=== PATIENT | female | born 2000 | race African-American/Black ===

== ENCOUNTER 2021-10-17 19:15 | Inpatient (IN) | payer BC, OTHER ==
[2021-10-21] MEDS ORDERED: Carboprost 250 MCG/ML AMP IM PRN (06:18)
[2021-10-21] MEDS ORDERED: Promethazine HCl 25 MG/ML VIAL IM PRN ×3 (06:18→21:16)
[2021-10-21] MEDS ORDERED: Ondansetron PF 4 MG/2 ML Vial IVP PRN ×3 (06:18→21:16)
[2021-10-21] MEDS ORDERED: Lidocaine 1% (PF) 30 ML VIAL SC PRN (06:18)
[2021-10-21] MEDS ORDERED: hydrALAZINE 20 MG/ML VIAL SLOW IVP PRN ×2 (06:18→23:19)
[2021-10-21] MEDS ORDERED: HYDROcodone/Acetaminophen 5/325 mg Tablet PO PRN ×2 (06:18)
[2021-10-21] MEDS ORDERED: Ibuprofen 800 MG TAB PO PRN (06:18)
[2021-10-21] MEDS ORDERED: Diphenoxylate HCl/Atropine Tablet PO PRN ×2 (06:18)
[2021-10-21] MEDS ORDERED: NS w/ Oxytocin 30 units 500 ML IV SCH ×2 (06:18)
[2021-10-21] MEDS ORDERED: Methylergonovine 0.2 MG/ML VIAL IM PRN (06:18)
[2021-10-21] MEDS ORDERED: Acetaminophen 500 MG TAB PO PRN (06:18)
[2021-10-21] MEDS ORDERED: Misoprostol 200 MCG TAB PR PRN (06:18)
[2021-10-21] MEDS ORDERED: Butorphanol Tartrate 1 MG/ML VIAL SLOW IVP PRN (06:18)
[2021-10-21 07:13] VITALS: BMI 34.4
[2021-10-21] MEDS ORDERED: NS w/ Oxytocin 30 units 500 ML ONE (07:15)
[2021-10-21] MEDS ORDERED: Bupivacaine 0.25% HCL 30 ML VIAL ONE (08:00)
[2021-10-21 08:03] LABS: Hemoglobin 11.4 g/dL (12.0-15.5); Mean Corpuscular HGB CONC 31.6 g/dL (32.0-36.0); Mean Corpuscular Hemoglobin 24.5 pg (27.0-33.0); Mean Corpuscular Volume 77.5 fl (81.6-98.3); Platelet Count 225 10x3/uL (150-450); RBC Distribution Width 13.9 % (11.5-14.5); Red Blood Cell (RBC) Count 4.66 10x6/uL (3.90-5.03); White Blood Cell (WBC) Count 7.7 10x3/uL (3.5-10.5)
[2021-10-21 08:40] LABS: Hep B Surf Ag Non-Reactive S/CO (NonReactive)
[2021-10-21 08:41] LABS: Syphilis Antibody Nonreactive (Nonreactive); Syphilis Antibody Index 0.04 S/CO (<1.00 Non-Reactive)
[2021-10-21 08:48] LABS: HBSAg Index 0.18 S/CO (0-0.99)
[2021-10-21] MEDS ORDERED: Fentanyl 2 mcg/Bup 0.1% Cadd 100 ML ONE (13:36)
[2021-10-21] MEDS ORDERED: Moisturizing Cream (Eucerin) 113 GM JAR TOP PRN ×2 (13:59→21:16)
[2021-10-21] MEDS ORDERED: Acetaminophen 325 MG TAB PO PRN (13:59)
[2021-10-21] MEDS ORDERED: ePHEDrine Sulfate 50 MG/10 ML VIAL SLOW IVP PRN (13:59)
[2021-10-21] MEDS ORDERED: Naloxone HCl 0.4 mg/ml Vial IVP PRN ×4 (13:59→21:16)
[2021-10-21] MEDS ORDERED: diphenhydrAMINE 50 MG/ML VIAL IVP PRN ×2 (13:59→21:16)
[2021-10-21] MEDS ORDERED: Lactated Ringer's 500 ML IV PRN (13:59)
[2021-10-21] MEDS ORDERED: Fentanyl 2 mcg/Bupivacaine 0.1% Cassette 100 ML EPIDURAL SCH (14:00)
[2021-10-21] MEDS ORDERED: Communication Order-Pharmacy FS SCH ×2 (14:00→21:30)
[2021-10-21] MEDS ORDERED: Azithromycin 500 MG VIAL ONE (19:45)
[2021-10-21] MEDS ORDERED: CEFAZOLIN 2 GM VIAL ONE (19:45)
[2021-10-21] MEDS ORDERED: Famotidine/PF 20 mg/2ml Vial ONE (19:45)
[2021-10-21] MEDS ORDERED: Morphine PF 10 MG/10 ML VIAL ONE (20:03)
[2021-10-21] MEDS ORDERED: Oxytocin 10 UNITS/ML VIAL ONE (20:03)
[2021-10-21] MEDS ORDERED: PHENYLEPHRINE-NS 100 MCG/ML 10 ML SYRINGE ONE (20:03)
[2021-10-21] MEDS ORDERED: Ondansetron PF 4 MG/2 ML Vial ONE (20:03)
[2021-10-21] MEDS ORDERED: Ketorolac Tromethamine 30 MG/ML VIAL ONE (20:03)
[2021-10-21] MEDS ORDERED: Lidocaine 2% MPF 10 ML AMP (For Epidural Use) ONE (20:03)
[2021-10-21] MEDS ORDERED: ePHEDrine Sulfate 50 MG/10 ML VIAL ONE (20:03)
[2021-10-21] MEDS ORDERED: Dexamethasone 4 mg/ml Vial ONE (20:03)
[2021-10-21] MEDS ORDERED: Fentanyl 100 MCG/2 ML VIAL ONE ×2 (20:49→20:59)
[2021-10-21] MEDS ORDERED: Meperidine HCl/PF 25 MG/ML VIAL SLOW IVP PRN (21:16)
[2021-10-21] MEDS ORDERED: Naloxone HCl 0.4 mg/ml Vial IV PRN (21:16)
[2021-10-21] MEDS ORDERED: Fentanyl 100 MCG/2 ML VIAL SLOW IVP PRN (21:16)
[2021-10-21] MEDS ORDERED: HYDROmorphone 2 MG/ML VIAL SLOW IVP PRN (21:16)
[2021-10-21] MEDS ORDERED: Promethazine HCl 25 MG SUPP PR PRN (21:16)
[2021-10-21] MEDS ORDERED: Ondansetron HCl/PF 4 MG/2 ML Vial IVP PRN (21:16)
[2021-10-21] MEDS ORDERED: Ketorolac Tromethamine 30 MG/ML VIAL IVP SCH (21:30)
[2021-10-21] MEDS ORDERED: Lanolin Ointment 7 GM TUBE TOP PRN (23:19)
[2021-10-21] MEDS ORDERED: Simethicone Chewable 80 MG TAB PO PRN (23:19)
[2021-10-21] MEDS ORDERED: Boostrix 0.5 ML (Tdap) VIAL IM ONE (23:19)
[2021-10-22] MEDS: Lactated Ringer's 1,000 ML IV SCH ×4 (01:12→20:24)
[2021-10-22] MEDS: Ketorolac Tromethamine 30 MG/ML VIAL IVP PRN ×2 (04:20→11:26)
[2021-10-22 04:46] LABS: Hemoglobin 9.5 g/dL (12.0-15.5); Mean Corpuscular HGB CONC 31.6 g/dL (32.0-36.0); Mean Corpuscular Hemoglobin 24.2 pg (27.0-33.0); Mean Corpuscular Volume 76.6 fl (81.6-98.3); Mean Platelet Volume 11.7 fl (7.4-10.4); Platelet Count 215 10x3/uL (150-450); RBC Distribution Width 14.1 % (11.5-14.5); Red Blood Cell (RBC) Count 3.93 10x6/uL (3.90-5.03); White Blood Cell (WBC) Count 15.8 10x3/uL (3.5-10.5)
[2021-10-22] MEDS: Docusate 100 MG CAP PO SCH ×2 (09:13→20:37)
[2021-10-22] MEDS: Prenatal Vitamin 1 TAB PO SCH (09:13)
[2021-10-22] MEDS ORDERED: HYDROcodone/Acetaminophen 5/325 mg Tablet PO PRN (09:30)
[2021-10-22] MEDS: HYDROcodone/Acetaminophen 5/325 mg Tablet PO PRN ×2 (12:42→18:20)
[2021-10-23] MEDS: HYDROcodone/Acetaminophen 5/325 mg Tablet PO PRN (01:56)
[2021-10-23] MEDS: Ibuprofen 800 MG TAB PO SCH ×2 (06:52→13:20)
[2021-10-23] MEDS: Docusate 100 MG CAP PO SCH (09:13)
[2021-10-23] MEDS: Prenatal Vitamin 1 TAB PO SCH (09:13)
[2021-10-23 09:39] VITALS: TEMP 98.3
[2021-10-23 12:11] VITALS: BP 115/74
== END 2021-10-23 14:30 | disposition home or self-care (01) | DRG 787 ==
LOC: CSHLD 10-21 04:56 → CSHPP 10-21 23:30
PROVIDERS: ADMIT Obstetrics & Gynecology; ATTEND Obstetrics & Gynecology
PROC: 10H07YZ Insertion of Other Device into Products of Conception, Via Natural or Artificial Opening (ICD-10-PCS; principal; 2021-10-21)
PROC: 10D00Z1 Extraction of Products of Conception, Low, Open Approach (ICD-10-PCS; 2021-10-21)
PROC: 3E033VJ Introduction of Other Hormone into Peripheral Vein, Percutaneous Approach (ICD-10-PCS; 2021-10-21)
DX: O48.0 Post-term pregnancy (principal); R71.0 Precipitous drop in hematocrit; Z3A.40 40 weeks gestation of pregnancy; Z37.0 Single live birth; O32.4XX0 Maternal care for high head at term, not applicable or unspecified; O99.893 Other specified diseases and conditions complicating puerperium; O62.1 Secondary uterine inertia
CPT/HCPCS: 36415; 51702; 85027; 86780; 86850; 86900; 86901; 87340; J0456; J0595; J0690; J1100; J1885; J2274; J2405; J2590; J3010; J7120; S0020; S0028; U0003; U0005

== ENCOUNTER 2021-10-18 09:10 | Outpatient (CLI) | payer BC | END 2021-10-18 09:11 | disposition home or self-care (01) | LOC: CSHLAB 09:10 | PROVIDERS: ATTEND Obstetrics & Gynecology | DX: Z20.822 Contact with and (suspected) exposure to COVID-19 (principal) | CPT/HCPCS: U0003; U0005 ==

== ENCOUNTER 2022-07-04 18:35 | Emergency (ER) | payer BC, OTHER | END 2022-07-04 21:23 | disposition home or self-care (01) | LOC: CSHERS 18:35 | DX: M25.542 Pain in joints of left hand (principal); M25.541 Pain in joints of right hand; F17.210 Nicotine dependence, cigarettes, uncomplicated | CPT/HCPCS: 99283 ==